=== PATIENT | male | born 1945 | race Caucasian/White ===

== ENCOUNTER 2019-09-01 00:29 | Inpatient (IN) | payer OTHER ==
[~2019-09-01] VITALS: Ht 167.6 cm; Wt 68.4 kg
--- NOTE | 2019-09-01 00:55 | NUR ---
Care assumed. Pt sent from [facility] for neuro consult. Pt with increased ALOC per report. Questionable seizures JIGMAN. Pt is not answering questions appropriately at this time. Bitting at staff when attempting to place BP cuff. Moving all extremities. Unable to assess pupils s/t pt refusing. No seizure activity has been noted. Precautions in place. Unsure of pt's baseline. VSS. ERP in to eval. Pt to be admitted for further neuro assessment.
[2019-09-01] MEDS ORDERED: THIAMINE 100 MG in SODIUM CHLORIDE 0.9% 50 ML IV ONE (02:00)
[2019-09-01] MEDS ORDERED: ACETAMINOPHEN 650 MG/20.3 ML UDC PO PRN (02:00)
[2019-09-01] MEDS ORDERED: ONDANSETRON 2MG/ML, 2ML IVPush PRN (02:00)
[2019-09-01] MEDS ORDERED: LABETALOL 5MG/ML, 20ML IV PRN (02:00)
[2019-09-01] MEDS: PLEASE ENTER ALLERGIES MC SCH ×2 (02:30→10:30)
[2019-09-01 03:09] LABS: INTERNATIONAL NORMALIZED RATIO 1.03 (0.93-1.1); PROTHROMBIN TIME 10.9 Seconds (9.6-11.5)
[2019-09-01] MEDS ORDERED: OMNIPAQUE 350 MG/ML, 100ML BOTTLE ONE (04:37)
[2019-09-01 07:51] VITALS: BP 112/65
[2019-09-01] MEDS: ASPIRIN 81 MG TABLET CHEW PO/NG SCH (09:00)
[2019-09-01] MEDS ORDERED: GADOTERATE 7.5 MMOL/15 ML SYR ONE (11:30)
[2019-09-01] MEDS ORDERED: LORazepam 2 MG/ML, 1ML IVPush PRN (12:00)
[2019-09-01 12:42] VITALS: BP 113/67
[2019-09-01] MEDS ORDERED: LEVETIRACETAM 500 MG TABLET PO SCH (14:00)
--- NOTE | 2019-09-01 14:09 | NUR ---
REC [facility] Addendum: 09/01/19 at [address] Amended: Links added.
[2019-09-01 19:18] VITALS: BP 123/72
[2019-09-01 22:23] LABS: MICROSCOPIC INDICATED
[2019-09-01 22:26] LABS: CULTURE INDICATED? YES
[2019-09-01 22:29] LABS: AMPHETAMINE SCREEN, URINE Negative (Negative); BARBITURATE SCREEN, URINE Negative (Negative); BENZODIAZEPINE SCREEN, URINE Positive (Negative); CANNABINOID SCREEN, URINE Negative (Negative); COCAINE SCREEN, URINE Negative (Negative); METHADONE SCREEN, URINE Negative (Negative); OPIATE SCREEN, URINE Negative (Negative)
[2019-09-01] MEDS: LEVETIRACETAM 500 MG TABLET PO SCH (23:50)
[2019-09-02 01:36] VITALS: BP 121/72
[2019-09-02 06:06] LABS: BASOPHILS # (AUTO) 0.03 x10^3/uL (0-0.1); BASOPHILS % (AUTO) 0 % (0-1); EOSINOPHILS # (AUTO) 0.25 x10^3/uL (0-0.4); EOSINOPHILS % (AUTO) 4 % (1-7); LYMPHOCYTES # (AUTO) 1.29 x10^3/uL (1-3.4); LYMPHOCYTES % (AUTO) 21 % (22-44); MD NO; MEAN CORPUSCULAR HEMOGLOBIN 30.5 pg (27.5-34.5); MEAN CORPUSCULAR HGB CONC 34.1 g/dL (33.2-36.2); MEAN CORPUSCULAR VOLUME 89.5 fL (81-97); MEAN PLATELET VOLUME 8.3 fL (7.4-10.4); MONOCYTES # (AUTO) 0.76 x10^3/uL (0.2-0.8); MONOCYTES % (AUTO) 13 % (2-9); NEUTROPHILS # (AUTO) 3.78 x10^3/uL (1.8-6.8); NEUTROPHILS % (AUTO) 62 % (42-75); PLATELET COUNT 253 x10^3/uL (130-400); RED BLOOD COUNT 4.99 x10^6/uL (4.38-5.82)
[2019-09-02 06:22] LABS: ANION GAP 7 mmol/L (5-15); CALCIUM 9.1 mg/dL (8.5-10.1); CHLORIDE 108 mmol/L (98-107)
[2019-09-02 06:26] LABS: CHOL/HDL RATIO 5.1; CHOLESTEROL, TOTAL 182 mg/dL (140-239); CREATININE 0.69 mg/dL (0.7-1.3); HDL CHOL % 20 % (26-37); HDL CHOLESTEROL (DIRECT) 36 mg/dL (40-60); LDL CHOLESTEROL,CALCULATED 127 mg/dL (54-169); LDL/HDL RATIO 3.5 (0.5-3.0); TRIGLYCERIDES 94 mg/dL (50-200); VLDL CHOLESTEROL 19 mg/dL (0-25)
[2019-09-02 06:58] VITALS: BP 124/72
--- NOTE | 2019-09-02 08:49 | NUR ---
REC: Pureed/NTL diet; crush or float meds as tolerated Addendum: 09/02/19 at 0850 by Blessing BERRIOS Amended: Links added.
[2019-09-02] MEDS: ASPIRIN 81 MG TABLET CHEW PO/NG SCH (08:55)
[2019-09-02] MEDS: LEVETIRACETAM 500 MG TABLET PO SCH ×2 (12:02→23:57)
[2019-09-02 15:14] VITALS: BP 146/77
[2019-09-02 18:23] VITALS: BP 105/60
[2019-09-03 01:25] VITALS: BP 118/64
[2019-09-03] MEDS: ASPIRIN 81 MG TABLET CHEW PO/NG SCH (08:42)
[2019-09-03] MEDS: LEVETIRACETAM 500 MG TABLET PO SCH (10:59)
[2019-09-03] MEDS ORDERED: LEVE500T53 PO (11:33)
[2019-09-03 12:12] VITALS: BP 122/68
== END 2019-09-03 16:14 | disposition home or self-care (01) | DRG 101 ==
LOC: ED 00:56 → EDIP 01:04 → 4WST 02:08 → 4EST 09-03 10:51
PROVIDERS: ADMIT Family Medicine; ATTEND Family Medicine
DX: G40.909 Epilepsy, unspecified, not intractable, without status epilepticus (principal); F03.90 Unspecified dementia, unspecified severity, without behavioral disturbance, psychotic disturbance, mood disturbance, and anxiety; D18.00 Hemangioma unspecified site; G20 Parkinson's disease
CPT/HCPCS: 36415; 70496; 70498; 70553; 71045; 80048; 80061; 80307; 81001; 82140; 82607; 83605; 83735; 84100; 84443; 85025; 85610; 85730; 87086; 93005; 95816; 99285; G0378; J3411; Q9967; A9575